=== PATIENT | female | born 1945 | race Caucasian/White ===

== ENCOUNTER 2023-12-22 18:37 | Emergency (ER) | payer MEDICARE ==
[~2023-12-22] VITALS: Ht 152.4 cm; Wt 87.7 kg
[2023-12-22 18:47] VITALS: TEMP 98
[2023-12-22 20:14] VITALS: BP 121/61; PULSE 69
== END 2023-12-22 20:14 | disposition home or self-care (01) ==
LOC: COL.ER 18:37
DX: S20.212A Contusion of left front wall of thorax, initial encounter (principal); S40.022A Contusion of left upper arm, initial encounter; W18.2XXA Fall in (into) shower or empty bathtub, initial encounter
CPT/HCPCS: A9284

== ENCOUNTER 2024-03-31 17:48 | Emergency (ER) | payer MEDICARE ==
[~2024-03-31] VITALS: Ht 162.6 cm; Wt 83.2 kg
[2024-03-31 18:01] VITALS: TEMP 98.5
[2024-03-31 22:07] LABS: URINE APPEARANCE CLEAR (CLEAR/HAZY); URINE BLOOD NEGATIVE (NEGATIVE); URINE COLOR YELLOW (YELLOW); URINE GLUCOSE 3+ (NEGATIVE); URINE KETONE NEGATIVE (NEGATIVE); URINE NITRATE NEGATIVE (NEGATIVE); URINE PROTEIN(semi-quant) NEGATIVE (NEGATIVE); URINE UROBILINOGEN 0.2 E.U/dL (0.2-1.0)
[2024-03-31 22:10] LABS: COLLECTION METHOD CLEAN CATCH
[2024-03-31] MEDS ORDERED: Nystatin Powder **** subs to Miconazole Powder TOP SCH (22:18)
[2024-03-31] MEDS ORDERED: metroNIDAZOLE 250 MG TAB PO ONE (22:30)
[2024-03-31] MEDS ORDERED: Miconazole 2% Topical Powder BOTTLE TP SCH (22:30)
[2024-03-31 22:56] VITALS: BP 145/65; PULSE 60
== END 2024-03-31 22:56 | disposition home or self-care (01) ==
LOC: COL.ER 17:48
PROVIDERS: Nurse Practitioner
DX: N76.0 Acute vaginitis (principal); Z88.2 Allergy status to sulfonamides